=== PATIENT | male | born 1975 | race Caucasian/White ===

== ENCOUNTER 2016-09-23 03:23 | Emergency (ER) | payer SELFPAY ==
[~2016-09-23] VITALS: Ht 175.3 cm; Wt 60.0 kg
[~2016-09-23 03:23] MED LIST: ALPR1 PO; AMOX875T2 PO; DEPA500T3 PO; DIVA250ER PO; LORTA5 PO
[2016-09-23] MEDS ORDERED: DIVA250ER PO ×3 (03:29→05:45)
[2016-09-23 03:30] VITALS: BP 117/70; PULSE 96; RESP 16; TEMP 98.2; O2SAT 100
[2016-09-23] MEDS ORDERED: SODIUM CHLOR 0.9% 1000 ML INJ 1,000 ML IV ONE (03:31)
[2016-09-23] MEDS ORDERED: SODIUM CHLORIDE 0.9% FLUSH 5 ML FLUSH IVF PRN (03:45)
[2016-09-23 04:09] LABS: BASOPHIL # 0.1 TH/MM3 (0-0.2); EOSINOPHIL % 0.5 % (0.0-4.0); HEMATOCRIT 35.8 % (39.0-51.0); HEMO FLAGS DIFF FINAL; LYMPH % 48.1 % (9.0-44.0); LYMPHOCYTE # 4.2 TH/MM3 (1.0-4.8); MEAN CELL VOLUME 90.2 FL (80.0-100.0); MEAN CORPUSCULAR HEMOGLOBIN 29.3 PG (27.0-34.0); MEAN CORPUSCULAR HGB CONC 32.5 % (32.0-36.0); MONO % 4.8 % (0.0-8.0); NEUT % 45.6 % (16.0-70.0); PLATELET COUNT 306 TH/MM3 (150-450); RED BLOOD COUNT 3.97 MIL/MM3 (4.50-5.90); RED CELL DISTRIBUTION WIDTH 14.5 % (11.6-17.2); WHITE BLOOD COUNT 8.8 TH/MM3 (4.0-11.0)
[2016-09-23 04:41] LABS: ANION GAP 8 MEQ/L (5-15); BICARBONATE 23.2 MEQ/L (21.0-32.0); BLOOD UREA NITROGEN 16 MG/DL (7-18); CHLORIDE 109 MEQ/L (98-107); GLOMERULAR FILTRATION RATE 68 ML/MIN (>89); POTASSIUM 3.9 MEQ/L (3.5-5.1); SODIUM (NA) 140 MEQ/L (136-145)
--- NOTE | 2016-09-23 05:36 | PD ---
HPI Chief Complaint: Alcohol/Drug Intoxication Time Seen by Provider: 03:31 Travel History International Travel<30 days: No Contact w/Intl Traveler<30days: No Traveled to known affect area: No History of Present Illness HPI 40-year-old male arrives to the ER by EMS. He was witnessed to have seized by his friends. Duration a minute or so. EMS notes a postictal state resolved prior to arrival. No fecal urinary incontinence observed. No oropharyngeal trauma observed. The patient states he takes Depakote however has not taken any for about 2 weeks or so. He lost his insurance. Patient also abused heroine intravenously tonight. He has no chest pain. EMS notes the patient was slightly hypoxic on scene with O2 sats in the 50s however promptly increased to 90s with face mask. PFSH Past Medical History Asthma: Yes (childhood asthma) Blood Disorders: No Heart Rhythm Problems: No Cancer: No Cardiovascular Problems: No High Cholesterol: No Chest Pain: No Congestive Heart Failure: No COPD: No Diabetes: No Diminished Hearing: No Endocrine: No Gastrointestinal Disorders: Yes Genitourinary: Yes Immune Disorder: No Musculoskeletal: No Neurologic: No Psychiatric: No Respiratory: No Immunizations Current: Yes Seizures: Yes (EPILEPSY) Sleep Apnea: No Thyroid Disease: No Past Surgical History Surgical History: No Previous Surgery Other Surgery: Yes (VASECTOMY) Social History Alcohol Use: No Tobacco Use: Yes (1PPD) Substance Use: Yes (marijuana/HEROIN) Allergies-Medications (Allergen,Severity, Reaction): Coded Allergies: No Known Allergies (Unverified , 05/04/15) Reported Meds & Prescriptions Reported Meds & Active Scripts Active Depakote ER (Divalproex Sodium) 250 Mg Cora 250 Mg PO 5 TIMES A DAY 30 Days Review of Systems Except as stated in HPI: all other systems reviewed are Neg Physical Exam Narrative GENERAL: 40-year-old male no acute distress SKIN: Warm and dry. HEAD: Atraumatic. Normocephalic. EYES: Pupils equal and round. No scleral icterus. No injection or drainage. ENT: No nasal bleeding or discharge. Mucous membranes pink and moist. NECK: Trachea midline. No JVD. CARDIOVASCULAR: Regular rate and rhythm. No murmur appreciated. RESPIRATORY: No accessory muscle use. Clear to auscultation. Breath sounds equal bilaterally. GASTROINTESTINAL: Abdomen soft, non-tender, nondistended. Hepatic and splenic margins not palpable. MUSCULOSKELETAL: No obvious deformities. No clubbing. No cyanosis. No edema. NEUROLOGICAL: Awake and alert. No obvious cranial nerve deficits. Motor grossly within normal limits. Normal speech. PSYCHIATRIC: Appropriate mood and affect; insight and judgment normal. Data Data Last Documented VS Vital Signs Date Time Temp Pulse Resp B/P Pulse Ox O2 Delivery O2 Flow Rate FiO2 09/23/16 05:51 80 16 115/72 100 Nasal Cannula 2 09/23/16 03:30 98.2 Orders Complete Blood Count With Diff (09/23/16 03:31) Basic Metabolic Panel (Bmp) (09/23/16 03:31) Alcohol (Ethanol) (09/23/16 03:31) Valproic Acid (Depakene) (09/23/16 03:31) Drug Screen, Random Urine (09/23/16 03:31) Blood Glucose (09/23/16 03:31) Ecg Monitoring (09/23/16 03:31) Iv Access Insert/Monitor (09/23/16 03:31) Oximetry (09/23/16 03:31) Cath For Specimen (09/23/16 03:31) Sodium Chlor 0.9% 1000 Ml Inj (Ns 1000 M (09/23/16 03:31) Sodium Chloride 0.9% Flush (Ns Flush) (09/23/16 03:45) Divalproex Er (Depakote Er) (09/23/16 05:45) Labs Laboratory Tests Test 09/23/16 09/23/16 03:45 05:26 White Blood Count 8.8 TH/MM3 Red Blood Count 3.97 MIL/MM3 Hemoglobin 11.7 GM/DL Hematocrit 35.8 % Mean Corpuscular Volume 90.2 FL Mean Corpuscular Hemoglobin 29.3 PG Mean Corpuscular Hemoglobin 32.5 % Concent Red Cell Distribution Width 14.5 % Platelet Count 306 TH/MM3 Mean Platelet Volume 6.7 FL Neutrophils (%) (Auto) 45.6 % Lymphocytes (%) (Auto) 48.1 % Monocytes (%) (Auto) 4.8 % Eosinophils (%) (Auto) 0.5 % Basophils (%) (Auto) 1.0 % Neutrophils # (Auto) 4.0 TH/MM3 Lymphocytes # (Auto) 4.2 TH/MM3 Monocytes # (Auto) 0.4 TH/MM3 Eosinophils # (Auto) 0.0 TH/MM3 Basophils # (Auto) 0.1 TH/MM3 CBC Comment DIFF FINAL Differential Comment Sodium Level 140 MEQ/L Potassium Level 3.9 MEQ/L Chloride Level 109 MEQ/L Carbon Dioxide Level 23.2 MEQ/L Anion Gap 8 MEQ/L Blood Urea Nitrogen 16 MG/DL Creatinine 1.18 MG/DL Estimat Glomerular Filtration 68 ML/MIN Rate Random Glucose 200 MG/DL Calcium Level 8.3 MG/DL Valproic Acid (Depakene) Level LESS THAN 3 MCG/ML Ethyl Alcohol Level LESS THAN 3 MG/DL Urine Opiates Screen POS Urine Barbiturates Screen NEG Urine Amphetamines Screen POS Urine Benzodiazepines Screen NEG Urine Cocaine Screen POS Urine Cannabinoids Screen POS MDM Medical Decision Making Medical Screen Exam Complete: Yes Emergency Medical Condition: Yes Differential Diagnosis Seizure, Depakote noncompliance, drug abuse, electrolyte imbalance Narrative Course CBC & BMP Diagram 09/23/16 03:45 Valproic acid < 3 EtOH < 3 Urine drug screen is positive for cannabinoids, amphetamines, opiates and cocaine. Depakote given here. Prescription given here. Patient cautioned against IV drug abuse. Upon reassessment prior to discharge the patient was resting comfortably and feels better, is alert and in no distress. The patients results and examination findings were discussed. The repeat examination is unremarkable and benign. The history, exam, diagnostic testing, and current condition do not suggest any significant pathology to warrant further testing, continued ED treatment, admission, or surgical evaluation at this point. The vital signs have been stable. The patient does not have uncontrollable pain, intractable vomiting, or other significant symptoms. The patient's condition is stable and appropriate for discharge. The patient will pursue further outpatient evaluation with a primary care physician or other designated or consulting physician as indicated in the discharge instructions. The patient expressed understanding and was agreeable with this plan. Diagnosis Primary Impression: Seizure Additional Impressions: Seizure secondary to subtherapeutic anticonvulsant medication Polysubstance abuse Referrals: Primary Care Physician 2 days Additional Instructions: You have a choice when it comes to health care, and we are glad that you chose [facility]. Hopefully, we have met your expectations on today's visit. You are welcome to return to [facility] at any time, as we are committed to meeting the health care needs of our community. Med/Other Pt SpecificInfo: Prescription(s) given Scripts Divalproex ER (Depakote ER)250 Mg [id number] Mg PO 5 TIMES A DAY 30 Days Ref 0 Prov:Paulo Painting MD 09/23/16 Disposition: 01 DISCHARGE HOME Condition: Stable Paulo Painting MD Sep 23, 2016 05:36
[2016-09-23 05:43] LABS: AMPHETAMINE, URINE POS (NEG); BARBITURATES, URINE NEG (NEG); COCAINE, URINE POS (NEG)
[2016-09-23] MEDS ORDERED: DIVALPROEX SODIUM E.R. 500 MG TAB PO ONE (05:45)
[2016-09-23 05:51] VITALS: BP 115/72; PULSE 80; RESP 16; O2SAT 100
== END 2016-09-23 06:15 | disposition home or self-care (01) ==
LOC: NEPE 03:23
DX: G40.909 Epilepsy, unspecified, not intractable, without status epilepticus (principal)
CPT/HCPCS: 80048; 80164; 80307; 80320; 85025; 96360; 99284; J7030

== ENCOUNTER 2017-03-23 22:22 | Emergency (ER) | payer SELFPAY ==
[~2017-03-23] VITALS: Ht 175.3 cm; Wt 72.3 kg
[~2017-03-23 22:22] MED LIST changes: -ALPR1 PO; -AMOX875T2 PO; -DEPA500T3 PO; -LORTA5 PO
[2017-03-23 22:28] VITALS: BP 137/72; PULSE 77; RESP 18; TEMP 98.3; O2SAT 100
[2017-03-23] MEDS ORDERED: DIVALPROEX SODIUM E.R. 500 MG TAB PO ONE (22:45)
--- NOTE | 2017-03-23 22:51 | PD ---
HPI Chief Complaint: Seizure Time Seen by Provider: 22:30 Travel History International Travel<30 days: No Contact w/Intl Traveler<30days: No Traveled to known affect area: No History of Present Illness HPI 41yo M with PMH of seizure disorder noncompliant with depakote for months here after a witnessed seizure at [employer] today. As per triage note, pt was standing in line at [employer] and had a generalized tonic clonic seizure. Pt remembers being on line and then waking up in ambulance. Does not remember what happened. Denies any pain anywhere now. Pt is AAOx3 and denies any fever, chest pain, sob , n/v, abdominal pain, focal weakness or numbness. He states that he was told that his caught him but his is not at bedside to verify what happened. PFSH Past Medical History Asthma: Yes (childhood asthma) Blood Disorders: No Heart Rhythm Problems: No Cancer: No Cardiovascular Problems: No High Cholesterol: No Chest Pain: No Congestive Heart Failure: No COPD: No Diabetes: No Diminished Hearing: No Endocrine: No Gastrointestinal Disorders: Yes Genitourinary: Yes Immune Disorder: No Musculoskeletal: No Neurologic: No Psychiatric: No Respiratory: No Immunizations Current: Yes Seizures: Yes (EPILEPSY) Sleep Apnea: No Thyroid Disease: No Past Surgical History Other Surgery: Yes (VASECTOMY) Social History Alcohol Use: No Tobacco Use: Yes (1PPD) Substance Use: Yes (marijuana/HEROIN) Allergies-Medications (Allergen,Severity, Reaction): Coded Allergies: No Known Allergies (Unverified , 05/04/15) Reported Meds & Prescriptions Reported Meds & Active Scripts Active Divalproex DR (Divalproex Sodium) 500 Mg Tabdr 500 Mg PO BID 14 Days Depakote ER (Divalproex Sodium) 250 Mg Cora 250 Mg PO 5 TIMES A DAY 30 Days Review of Systems Except as stated in HPI: all other systems reviewed are Neg Physical Exam Narrative GENERAL: 41yo M not in distress. SKIN: Focused skin assessment warm/dry. HEAD: Atraumatic. Normocephalic. EYES: Pupils equal and round. No scleral icterus. No injection or drainage. ENT: No nasal bleeding or discharge. Mucous membranes pink and moist. NECK: Trachea midline. No JVD. CARDIOVASCULAR: Regular rate and rhythm. No murmur appreciated. RESPIRATORY: No accessory muscle use. Clear to auscultation. Breath sounds equal bilaterally. GASTROINTESTINAL: Abdomen soft, non-tender, nondistended. No rebound tenderness or guarding. MUSCULOSKELETAL: No obvious deformities. No clubbing. No cyanosis. No edema. NEUROLOGICAL: Awake and alert. No obvious cranial nerve deficits. Motor grossly within normal limits. Normal speech. PSYCHIATRIC: Appropriate mood and affect; insight and judgment normal. Data Data Last Documented VS Vital Signs Date Time Temp Pulse Resp B/P Pulse Ox O2 Delivery O2 Flow Rate FiO2 03/24/17 01:26 67 18 132/64 99 Room Air 03/23/17 22:28 98.3 Orders Divalproex Er (Depakote Er) (03/23/17 22:45) Complete Blood Count With Diff (03/23/17 22:43) Basic Metabolic Panel (Bmp) (03/23/17 22:43) Magnesium (Mg) (03/23/17 22:43) Ct Brain W/O Iv Contrast(Rout) (03/23/17 ) Potassium Chloride (Kcl) (03/24/17 01:15) Mandatory Outpatient Referral (03/24/17 01:56) Electrocardiogram (03/23/17 22:34) Labs Laboratory Tests Test 03/23/17 23:22 White Blood Count 9.1 TH/MM3 Red Blood Count 4.72 MIL/MM3 Hemoglobin 13.7 GM/DL Hematocrit 40.1 % Mean Corpuscular Volume 84.9 FL Mean Corpuscular Hemoglobin 29.1 PG Mean Corpuscular Hemoglobin 34.2 % Concent Red Cell Distribution Width 14.1 % Platelet Count 297 TH/MM3 Mean Platelet Volume 7.2 FL Neutrophils (%) (Auto) 65.3 % Lymphocytes (%) (Auto) 25.7 % Monocytes (%) (Auto) 7.5 % Eosinophils (%) (Auto) 0.8 % Basophils (%) (Auto) 0.7 % Neutrophils # (Auto) 6.0 TH/MM3 Lymphocytes # (Auto) 2.3 TH/MM3 Monocytes # (Auto) 0.7 TH/MM3 Eosinophils # (Auto) 0.1 TH/MM3 Basophils # (Auto) 0.1 TH/MM3 CBC Comment DIFF FINAL Differential Comment Sodium Level 134 MEQ/L Potassium Level 3.1 MEQ/L Chloride Level 101 MEQ/L Carbon Dioxide Level 27.0 MEQ/L Anion Gap 6 MEQ/L Blood Urea Nitrogen 8 MG/DL Creatinine 1.12 MG/DL Estimat Glomerular Filtration 72 ML/MIN Rate Random Glucose 98 MG/DL Calcium Level 9.8 MG/DL Magnesium Level 2.4 MG/DL [facility] Medical Decision Making Medical Screen Exam Complete: Yes Emergency Medical Condition: Yes Differential Diagnosis Seizure secondary to noncompliance vs. electrolyte abnormality Narrative Course 41yo M with history of seizure here after a seizure. Pt has been noncompliant with medication because he said he could not afford it. Labs reviewed, no leukocytosis. K: 3.1, replaced orally. CT brain negative. VS stable. Pt was given depakote 750mg PO here. Pt has been observed in the ED without any seizure. Will do mandatory referral for neurology. Also gave him a coupon for the medication for [facility] and pt states he will obtain it. Pt states he used to take depakote 500mg in AM and 750mg in PM. Pt has not taken it for a long time and has not seen a neurologist. Will give 14 days of 500mg BID and have pt follow up with neurology. Diagnosis Primary Impression: Seizure Patient Instructions: General Instructions Departure Forms: Tests/Procedures Additional Instructions: Please follow up with neurology at your appointment. Return to the ED if symptoms worsen. Med/Other Pt SpecificInfo: Prescription(s) given Scripts Divalproex DR 500 Mg [id number] Mg PO BID 14 Days Ref 0 Prov:Cornelia Woods DO 03/24/17 Disposition: 01 DISCHARGE HOME Condition: Stable Cornelia Woods DO Mar 23, 2017 22:51
[2017-03-23 23:42] LABS: BASOPHIL # 0.1 TH/MM3 (0-0.2); BASOPHIL % 0.7 % (0.0-2.0); EOSINOPHIL # 0.1 TH/MM3 (0-0.4); EOSINOPHIL % 0.8 % (0.0-4.0); HEMATOCRIT 40.1 % (39.0-51.0); HEMO FLAGS DIFF FINAL; LYMPH % 25.7 % (9.0-44.0); LYMPHOCYTE # 2.3 TH/MM3 (1.0-4.8); MEAN CELL VOLUME 84.9 FL (80.0-100.0); MEAN CORPUSCULAR HEMOGLOBIN 29.1 PG (27.0-34.0); MEAN CORPUSCULAR HGB CONC 34.2 % (32.0-36.0); MONO % 7.5 % (0.0-8.0); NEUT % 65.3 % (16.0-70.0); PLATELET COUNT 297 TH/MM3 (150-450); RED BLOOD COUNT 4.72 MIL/MM3 (4.50-5.90); RED CELL DISTRIBUTION WIDTH 14.1 % (11.6-17.2); WHITE BLOOD COUNT 9.1 TH/MM3 (4.0-11.0)
[2017-03-24 00:07] LABS: MAGNESIUM 2.4 MG/DL (1.5-2.5); POTASSIUM 3.1 MEQ/L (3.5-5.1)
--- NOTE | 2017-03-24 01:13 | RADRPT ---
EXAM DATE/TIME: 03/24/2017 00:28 [facility] COMPARISON: No previous studies available for comparison. INDICATIONS : Seizure, possible head trauma. RADIATION DOSE: 34.70 CTDIvol (mGy) MEDICAL HISTORY : Seizures. Substance abuse. SURGICAL HISTORY : Vasectomy. ENCOUNTER: Initial ACUITY: 1 day PAIN SCALE: 0/10 LOCATION: cranial TECHNIQUE: Multiple contiguous axial images were obtained of the head. Using automated exposure control and adj ustment of the mA and/or kV according to patient size, radiation dose was kept as low as reasonably a chievable to obtain optimal diagnostic quality images. DICOM format image data is available electro nically for review and comparison. FINDINGS: CEREBRUM: The ventricles are normal for age. No evidence of midline shift, mass lesion, hemorrhage or acute in farction. No extra-axial fluid collections are seen. POSTERIOR FOSSA: The cerebellum and brainstem are intact. The 4th ventricle is midline. The cerebellopontine angle i s unremarkable. EXTRACRANIAL: The visualized portion of the orbits is intact. SKULL: The calvaria is intact. No evidence of skull fracture. CONCLUSION: Normal examination. Jac Medina MD on March 24, 2017 at 1:09 Board Certified Radiologist. This report was verified electronically.
[2017-03-24] MEDS ORDERED: POTASSIUM CHLORIDE 20 MEQ CONTROLLED RELEASE TAB PO ONE (01:15)
[2017-03-24 01:26] VITALS: BP 132/64; PULSE 67; RESP 18; O2SAT 99
[2017-03-24] MEDS ORDERED: DIVA500T PO (01:55)
--- NOTE | 2017-03-24 18:15 | EKG ---
Date Performed: 03/23/2017 Time Performed: 22:34:57 PTAGE: 41 years EKG: Sinus rhythm POSSIBLE LEFT ATRIAL ENLARGEMENT BORDERLINE ECG NO PREVIOUS TRACING DOCTOR: Jorge Morgan Interpretating Date/Time 03/24/2017 18:11:55
== END 2017-03-24 02:18 | disposition home or self-care (01) ==
LOC: NEPE 22:22
DX: G40.909 Epilepsy, unspecified, not intractable, without status epilepticus (principal); Z91.19 Patient's noncompliance with other medical treatment and regimen; Z79.899 Other long term (current) drug therapy
CPT/HCPCS: 70450; 80048; 83735; 85025; 93005